=== PATIENT | male | born 1980 | race Caucasian/White ===

== ENCOUNTER 2023-09-19 15:18 | Outpatient (CLI) | payer OTHER | END 2023-09-19 15:19 | disposition home or self-care (01) | LOC: CSHRAD 15:18 | PROVIDERS: ATTEND Chiropractor | DX: M19.90 Unspecified osteoarthritis, unspecified site (principal); M47.814 Spondylosis without myelopathy or radiculopathy, thoracic region; M41.84 Other forms of scoliosis, thoracic region; M47.816 Spondylosis without myelopathy or radiculopathy, lumbar region; M47.817 Spondylosis without myelopathy or radiculopathy, lumbosacral region | CPT/HCPCS: 70160; 72070; 72100 ==